=== PATIENT | female | born 1990 | race American Indian/Alaskan Native ===

== ENCOUNTER 2017-06-07 17:02 | Emergency (ER) | payer SELFPAY ==
[2017-06-07 17:31] VITALS: BP 145/76
== END 2017-06-08 01:22 | disposition left against medical advice (07) ==
LOC: ED 17:02
DX: K08.89 Other specified disorders of teeth and supporting structures (principal); Z53.21 Procedure and treatment not carried out due to patient leaving prior to being seen by health care provider

== ENCOUNTER 2017-06-22 14:30 | Emergency (ER) | payer OTHER ==
[2017-06-22 15:20] VITALS: BP 113/82
[2017-06-22] MEDS ORDERED: THERMAZENE 50 GRAM TP ONE (16:58)
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
== END 2017-06-22 18:45 | disposition home or self-care (01) ==
LOC: ED 14:30
DX: L03.116 Cellulitis of left lower limb (principal); S91.012D Laceration without foreign body, left ankle, subsequent encounter; X58.XXXD Exposure to other specified factors, subsequent encounter
CPT/HCPCS: 99282; 99283

== ENCOUNTER 2017-10-04 01:02 | Emergency (ER) | payer MEDICAID ==
[2017-10-04] MEDS ORDERED: MOTRIN PO ONE (04:20)
--- NOTE | 2017-10-04 04:53 | XRay Report ---
FINAL REPORT EXAM: XR ANKLE 2V LT HISTORY: PAIN COMPARISONS: None. FINDINGS: AP and lateral views left ankle Circumferential soft tissue swelling about the left ankle. The ankle mortise is intact. No displaced fracture identified. A tibiotalar joint effusion is likely present. Joint spaces are otherwise unremarkable. There is no gross malalignment or deformity. IMPRESSION: Left ankle periarticular soft tissue swelling with likely small tibiotalar joint effusion and no visualized fracture. Consider short interval follow-up radiographs for persistent/worsening symptoms.
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
[2017-10-04 12:29] VITALS: BP 128/82
== END 2017-10-04 12:29 | disposition home or self-care (01) ==
LOC: ED 01:02
DX: S93.402A Sprain of unspecified ligament of left ankle, initial encounter (principal); V89.2XXA Person injured in unspecified motor-vehicle accident, traffic, initial encounter; Y93.89 Activity, other specified; Y92.89 Other specified places as the place of occurrence of the external cause; Y99.8 Other external cause status

== ENCOUNTER 2022-05-19 21:47 | Emergency (ER) | payer SELFPAY ==
--- NOTE | 2022-05-20 08:10 | Emergency Department Report ---
ED Female HPI - General Chief complaint: Abdominal Pain Stated complaint: LEFT SIDE PAIN Source: patient Mode of arrival: Ambulatory Limitations: No Limitations - History of Present Illness Initial comments: 32-year-old female presents to the ED complaining of dysuria and frequency x2 days. Patient denies any abdominal pain shortness of breath or chest pain at present time. Denies any nausea vomiting fever chills. Denies any vaginal discharge at present time. SHe is alert and oriented x3. No acute distress noted. No ill appearance noted. MD Complaint: dysuria Improves with: none Worsens with: urination Are you Now?: No Associated Symptoms: denies other symptoms - Related Data Previous Rx's Medication Instructions Recorded Last Taken Type Naproxen [Naprosyn] 500 mg PO BID PRN #60 tablet 06/22/17 Unknown Rx cephALEXin [Keflex] 500 mg PO TID #30 capsule 06/22/17 Unknown Rx traMADoL [Ultram] 50 mg PO Q6HR PRN #12 tablet 10/04/17 Unknown Rx Ondansetron (Nf) [Zofran TAB] 8 mg PO Q8HR PRN 3 Days #12 tablet 05/20/22 Unknown Rx Sulfamethoxazole/Trimethoprim 1 each PO BID 10 Days #20 tab 05/20/22 Unknown Rx [Bactrim DS TAB] Allergies Allergy/AdvReac Type Severity Reaction Status Date / Time No Known Allergies Allergy Unverified 06/07/17 17:28 ED Review of Systems ROS: Stated complaint: LEFT SIDE PAIN Other details as noted in HPI Constitutional: denies: chills, fever Eyes: denies: eye pain, eye discharge, vision change ENT: denies: ear pain, throat pain Respiratory: denies: cough, shortness of breath, wheezing Cardiovascular: denies: chest pain, palpitations Endocrine: no symptoms reported Gastrointestinal: denies: abdominal pain, nausea, diarrhea Genitourinary: urgency, dysuria. denies: discharge Musculoskeletal: denies: back pain, joint swelling, arthralgia Skin: denies: rash, lesions Neurological: denies: headache, weakness, paresthesias Psychiatric: denies: anxiety, depression Hematological/Lymphatic: denies: easy bleeding, easy bruising ED Past Medical Hx - Past Medical History Previous Medical History?: Yes - Surgical History Past Surgical History?: No - Social History Smoking Status: Never Smoker - Medications Home Medications: Home Medications Medication Instructions Recorded Confirmed Last Taken Type Naproxen [Naprosyn] 500 mg PO BID PRN #60 tablet 06/22/17 Unknown Rx cephALEXin [Keflex] 500 mg PO TID #30 capsule 06/22/17 Unknown Rx traMADoL [Ultram] 50 mg PO Q6HR PRN #12 tablet 10/04/17 Unknown Rx Ondansetron (Nf) [Zofran TAB] 8 mg PO Q8HR PRN 3 Days #12 tablet 05/20/22 Unknown Rx Sulfamethoxazole/Trimethoprim 1 each PO BID 10 Days #20 tab 05/20/22 Unknown Rx [Bactrim DS TAB] ED Physical Exam - General Limitations: No Limitations General appearance: alert, in no apparent distress - Head Head exam: Present: atraumatic, normocephalic - Eye Eye exam: Present: normal appearance - ENT ENT exam: Present: mucous membranes moist - Neck Neck exam: Present: normal inspection - Respiratory Respiratory exam: Present: normal lung sounds bilaterally. Absent: respiratory distress - Cardiovascular Cardiovascular Exam: Present: regular rate, normal rhythm. Absent: systolic murmur, diastolic murmur, rubs, gallop - GI/Abdominal GI/Abdominal exam: Present: soft, normal bowel sounds - Extremities Exam Extremities exam: Present: normal inspection - Back Exam Back exam: Present: normal inspection - Neurological Exam Neurological exam: Present: alert, oriented X3 - Psychiatric Psychiatric exam: Present: normal affect, normal mood - Skin Skin exam: Present: warm, dry, intact, normal color. Absent: rash ED Course Vital Signs 05/19/22 05/20/22 22:33 09:46 Temperature 98.6 F 98.4 F Pulse Rate 75 71 Respiratory 18 16 Rate Blood Pressure 153/79 Blood Pressure 150/93 [Left] O2 Sat by Pulse 98 100 Oximetry ED Medical Decision Making - Medical Decision Making 32-year-old female presents to the ED complaining of dysuria and frequency x2 days. Patient denies any abdominal pain shortness of breath or chest pain at present time. Denies any nausea vomiting fever chills. Denies any vaginal discharge at present time. SHe is alert and oriented x3. No acute distress noted. No ill appearance noted. UA pertinent for urinary UTI Rechecked the patient is resting quietly , comfortable and feeling better. I discussed the results of diagnostic study, my clinical impression and the plan for further treatment with the patient. Patient agrees with plan and discharge at this present time. All question addressed. I have given the patient instruction regarding a diagnosis ,expectation ,follow- up and return precaution. I explained to the patient that emergent condition may arise and to return to the ED for new worsen and any new persisting condition. I have explained the importance of following up with the primary care physician or referral physician listed below has instructed. The patient verbalized understanding of discharge instruction. Abnormal Lab Results 05/20/22 07:44 Urine Color Straw Urine Turbidity Cloudy Specific [place] (Man) 1.015 Ur Protein (Man) 3+ Ur Ketones (Man) 5 Ur Nitrite (Man) Negative Ur Reducing Substances Not Reportable Urine Bilirubin (Man) Negative Urine Ictotest Not Reportable Leukocyte Esterase (Man) Large Urine WBC (Auto) > 182.0 H Urine RBC (Auto) 58.0 U Epithel Cells (Auto) 7.0 Urine Bacteria (Auto) 1+ Urine RBC (Manual) 3+ Urine Mucus Few Urine HCG, Qual Negative Critical care attestation.: If time is entered above; I have spent that time in minutes in the direct care of this critically ill patient, excluding procedure time. ED Disposition Clinical Impression: Urinary tract infection Qualifiers: Urinary tract infection type: site unspecified Hematuria presence: with hematuria Qualified Code(s): N39.0 - Urinary tract infection, site not specified Disposition: 01 HOME / SELF CARE / HOMELESS Is pt being admited?: No Does the pt Need Aspirin: No Condition: Stable Instructions: Antibiotic Medicine, Adult, [id number], Urinary Tract Infection, Adult, Abdominal Pain (ED) Additional Instructions: take medication as prescribed return to ed for any worsen Prescriptions: Sulfamethoxazole/Trimethoprim [Bactrim DS TAB] 1 each PO BID 10 Days #20 tab Ondansetron (Nf) [Zofran TAB] 8 mg PO Q8HR PRN 3 Days #12 tablet PRN Reason: Nausea Referrals: TAWNYA AKERS MD [Staff Physician] - 3-5 Days Forms: Work/School Release Form(ED) Time of Disposition: 09:25
[2022-05-20 08:28] LABS: Bacteria,Urine 1+ /HPF (Negative); HCG Qualitative,Urine Negative (Negative); Mucus,Urine FEW /HPF
[2022-05-20 08:31] LABS: WBC,Urine > 182.0 /HPF (0.0-6.0)
[2022-05-20 08:51] LABS: Color,Urine Straw (Yellow)
[2022-05-20 09:48] VITALS: BP 150/93
== END 2022-05-20 09:37 | disposition home or self-care (01) ==
LOC: ED 21:47
DX: N39.0 Urinary tract infection, site not specified (principal)
CPT/HCPCS: 81001; 81025; 99283